=== PATIENT | female | born 1990 | race African-American/Black ===

== ENCOUNTER 2017-02-08 23:49 | Inpatient (IN) | payer MEDICAID ==
[~2017-02-08] VITALS: Ht 162.6 cm; Wt 59.0 kg
--- NOTE | 2017-02-08 23:52 | Emergency Room Report ---
History of Present Illness General Chief Complaint: Vomiting Source: Patient, Family Member Present Illness HPI The patient presents with vomiting. This began a few hours ago while riding in a car. She hasn't had any blood. This happened to her before. She does not know the cause. She denies any pain at this time. She can't keep down fluids. In the past she got better with Zofran. Denies any melena or diarrhea she is not according to her. She denies pancreatitis. She denies alcohol or other drugs. No fevers. Some dizziness and hand numbness with mild dyspnea with vomiting. Allergies: Coded Allergies: No Known Allergies (Unverified , 02/08/17) Patient History Past Medical History: see triage record Social History: Denies: alcohol use, drug use Social History Narrative from home Reviewed Nursing Documentation: PMH: Agreed, PSxH: Agreed Review of Systems All Other Systems: negative except mentioned in HPI Physical Exam Vital Signs Date Time Temp Pulse Resp B/P Pulse Ox O2 Delivery O2 Flow Rate FiO2 02/08/17 23:50 98.2 80 18 126/90 100 Room Air Sp02 EP Interpretation: reviewed, normal General Appearance: well appearing, GCS 15, mild distress - vomiting Head: normocephalic Eyes: bilateral eye PERRL, bilateral eye anticteric, bilateral eye normal inspection ENT: dry mucus membranes Neck: supple Respiratory: lungs clear, normal breath sounds Cardiovascular #1: regular rate, rhythm Cardiovascular #2: 2+ radial (R) Gastrointestinal: normal inspection, normal bowel sounds, non tender, no mass, non-distended, scaphoid Musculoskeletal: back normal, gait/station normal, normal range of motion Neurologic: alert, oriented x3, grossly normal Psychiatric: depressed affect Skin: warm/dry, other - sallo Medical Decision Making Diagnostic Impression: Primary Impression: Intractable vomiting Qualified Codes: R11.2 - Nausea with vomiting, unspecified ER Course Patient presents with severe vomiting. Ddx: gastritis, cyclic vomiting, pancreatitis, gall bladder disease, PUD, gastroparesis, psychogenic vomiting, , viral syndrome amongst others. Patient appears volume depleted, though not tachycardic. Emergent evaluation with labs, and urine. Treatment with IV hydration and zofran. Labs remarkable for leukocytosis. Patient vomited after zofran. Reglan and benadryl given. Still vomiting. Zofran repeated. Still vomiting. Admit med Dr. Boothe. Laboratory Tests Test 02/09/17 00:03 02/09/17 04:04 02/09/17 09:54 02/10/17 04:50 White Blood Count 15.2 K/UL (4.8-10.8) H 17.6 K/UL (4.8-10.8) H 11.1 K/UL (4.8-10.8) H Red Blood Count 4.39 M/UL (4.20-5.40) 4.45 M/UL (4.20-5.40) 4.24 M/UL (4.20-5.40) Hemoglobin 10.6 G/DL (12.0-16.0) L 10.4 G/DL (12.0-16.0) L 10.1 G/DL (12.0-16.0) L Hematocrit 32.7 % (37.0-47.0) L 33.6 % (37.0-47.0) L 31.9 % (37.0-47.0) L Mean Corpuscular Volume 74 FL (80-99) L 76 FL (80-99) L 75 FL (80-99) L Mean Corpuscular Hemoglobin 24.2 PG (27.0-31.0) L 23.4 PG (27.0-31.0) L 23.8 PG (27.0-31.0) L Mean Corpuscular Hemoglobin Concent 32.6 G/DL (32.0-36.0) 30.9 G/DL (32.0-36.0) L 31.7 G/DL (32.0-36.0) L Red Cell Distribution Width 17.4 % (11.6-14.8) H 17.4 % (11.6-14.8) H 17.1 % (11.6-14.8) H Platelet Count 331 K/UL (150-450) 299 K/UL (150-450) 293 K/UL (150-450) Mean Platelet Volume 5.8 FL (6.5-10.1) L 6.3 FL (6.5-10.1) L 6.0 FL (6.5-10.1) L Neutrophils (%) (Auto) 70.6 % (45.0-75.0) % (45.0-75.0) 76.9 % (45.0-75.0) H Lymphocytes (%) (Auto) 22.5 % (20.0-45.0) % (20.0-45.0) 11.8 % (20.0-45.0) L Monocytes (%) (Auto) 6.0 % (1.0-10.0) % (1.0-10.0) 10.8 % (1.0-10.0) H Eosinophils (%) (Auto) 0.2 % (0.0-3.0) % (0.0-3.0) 0.0 % (0.0-3.0) Basophils (%) (Auto) 0.7 % (0.0-2.0) % (0.0-2.0) 0.5 % (0.0-2.0) Sodium Level 138 mEQ/L (135-145) 134 mEQ/L (135-145) L 139 mEQ/L (135-145) Potassium Level 3.4 mEQ/L (3.4-4.9) 3.8 mEQ/L (3.4-4.9) 3.4 mEQ/L (3.4-4.9) Chloride Level 97 mEQ/L (98-107) L 94 mEQ/L (98-107) L 101 mEQ/L (98-107) Carbon Dioxide Level 21 mEQ/L (20-30) 21 mEQ/L (20-30) 24 mEQ/L (20-30) Anion Gap 20 (5-15) H 19 (5-15) H 14 (5-15) Blood Urea Nitrogen 11 mg/dL (7-23) 6 mg/dL (7-23) L 6 mg/dL (7-23) L Creatinine 0.7 mg/dL (0.5-0.9) 0.6 mg/dL (0.5-0.9) 0.6 mg/dL (0.5-0.9) Estimate Glomerular Filtration Rate > 60 mL/min (>60) > 60 mL/min (>60) > 60 mL/min (>60) Glucose Level 142 mg/dL (74-106) H 145 mg/dL (74-106) H 135 mg/dL (74-106) H Calcium Level 9.2 mg/dL (8.6-10.2) 9.0 mg/dL (8.6-10.2) 8.7 mg/dL (8.6-10.2) Total Bilirubin 0.4 mg/dL (0.0-1.2) 0.5 mg/dL (0.0-1.2) 0.4 mg/dL (0.0-1.2) Aspartate Amino Transferase (AST) 15 U/L (5-40) 19 U/L (5-40) 20 U/L (5-40) Alanine Aminotransferase (ALT) 10 U/L (3-33) 12 U/L (3-33) 17 U/L (3-33) Alkaline Phosphatase 49 U/L (35-104) 51 U/L (35-104) 44 U/L (35-104) Total Protein 7.5 g/dL (6.6-8.7) 7.9 g/dL (6.6-8.7) 6.7 g/dL (6.6-8.7) Albumin 4.5 g/dL (3.5-5.2) 4.6 g/dL (3.5-5.2) 4.1 g/dL (3.5-5.2) Globulin 3.0 g/dL 3.3 g/dL 2.6 g/dL Albumin/Globulin Ratio 1.5 (1.0-2.7) 1.3 (1.0-2.7) 1.5 (1.0-2.7) Lipase 19 U/L (< 60) 27 U/L (< 60) Urine Color Pale yellow Urine Appearance Clear Urine pH 6.5 (4.5-8.0) Urine Specific [place] 1.020 (1.005-1.035) Urine Protein Negative (NEGATIVE) Urine Glucose (UA) 1+ (NEGATIVE) H Urine Ketones 4+ (NEGATIVE) H Urine Occult Blood Negative (NEGATIVE) Urine Nitrite Negative (NEGATIVE) Urine Bilirubin Negative (NEGATIVE) Urine Urobilinogen Normal MG/DL (0.0-1.0) Urine Leukocyte Esterase Negative (NEGATIVE) Urine HCG, Qualitative Negative Differential Total Cells Counted 100 Neutrophils % (Manual) 91 % (45-75) H Lymphocytes % (Manual) 4 % (20-45) L Monocytes % (Manual) 5 % (1-10) Eosinophils % (Manual) 0 % (0-3) Basophils % (Manual) 0 % (0-2) Band Neutrophils 0 % (0-8) Platelet Estimate Adequate Platelet Morphology Normal Hypochromasia 1+ Anisocytosis 1+ Microcytosis 1+ Hemoglobin A1c 5.2 % (< 6.0) Triglycerides Level 28 mg/dL (< 150) Cholesterol Level 178 mg/dL (< 200) LDL Cholesterol 76 mg/dL (60-99) HDL Cholesterol 96 mg/dL (> 60) H Cholesterol/HDL Ratio 1.9 (3.3-4.4) L Amylase Level 52 U/L (10-110) Iron Level 23 ug/dL (37-145) L Total Iron Binding Capacity 289 ug/dL (250-400) Percent Iron Saturation 8 % (15-50) L Unsaturated Iron Binding 266 ug/dL (112-346) Last Vital Signs Date Time Temp Pulse Resp B/P Pulse Ox O2 Delivery O2 Flow Rate FiO2 02/10/17 08:56 98.2 70 20 109/74 100 Room Air Status: improved Disposition: ADMITTED INPATIENT Condition: Serious Blu Manning M.D. Feb 08, 2017 23:52
[2017-02-09] VITALS (8 sets, daily range): BP systolic 104–140; BP diastolic 72–96
[2017-02-09] MEDS ORDERED: Famotidine 20 MG/ 2ML VIAL IVP ONE
[2017-02-09 00:26] LABS: BASOPHILS % (AUTO) 0.7 % (0.0-2.0); EOSINOPHILS % (AUTO) 0.2 % (0.0-3.0); LYMPHOCYTES % (AUTO) 22.5 % (20.0-45.0); MEAN CORPUSCULAR HEMOGLOBIN 24.2 PG (27.0-31.0); MEAN CORPUSCULAR HGB CONC 32.6 G/DL (32.0-36.0); MEAN CORPUSCULAR VOLUME 74 FL (80-99); MEAN PLATELET VOLUME 5.8 FL (6.5-10.1); NEUTROPHILS % (AUTO) 70.6 % (45.0-75.0); PLATELET COUNT 331 K/UL (150-450); RED BLOOD COUNT 4.39 M/UL (4.20-5.40); RED CELL DISTRIBUTION WIDTH 17.4 % (11.6-14.8); WHITE BLOOD COUNT 15.2 K/UL (4.8-10.8)
[2017-02-09 00:47] LABS: ALANINE AMINOTRANSFERASE 10 U/L (3-33); ALBUMIN/GLOBULIN RATIO 1.5 (1.0-2.7); ANION GAP 20 (5-15); ASPARTATE AMINO TRANSFERASE 15 U/L (5-40); CALCIUM 9.2 mg/dL (8.6-10.2); CARBON DIOXIDE 21 mEQ/L (20-30); CHLORIDE 97 mEQ/L (98-107); CREATININE 0.7 mg/dL (0.5-0.9); GLOMERULAR FILTRATION RATE > 60 mL/min (>60); HEMOLYSIS 4; LIPASE 19 U/L (< 60); POTASSIUM 3.4 mEQ/L (3.4-4.9); SODIUM 138 mEQ/L (135-145); TOTAL PROTEIN 7.5 g/dL (6.6-8.7)
[2017-02-09] MEDS ORDERED: DiphenhydrAMINE 50mg/ml Inj ONE (01:14)
[2017-02-09] MEDS ORDERED: Metoclopramide 10mg/10ml Liq ONE (01:15)
[2017-02-09] MEDS ORDERED: DiphenhydrAMINE 50mg/ml Inj IVP ONE (01:30)
[2017-02-09] MEDS ORDERED: Metoclopramide 10mg/2ml Inj IVP ONE (01:30)
[2017-02-09 04:30] LABS: APPEARANCE,URINE CLEAR; KETONES,URINE 4+ (NEGATIVE); NITRITE,URINE NEGATIVE (NEGATIVE); PH,URINE 6.5 (4.5-8.0); PROTEIN,URINE NEGATIVE (NEGATIVE); UROBILINOGEN,URINE NORMAL MG/DL (0.0-1.0)
[2017-02-09 04:31] LABS: LEUKOCYTE ESTERASE ,URINE NEGATIVE (NEGATIVE)
[2017-02-09] MEDS ORDERED: NKM (05:50)
[2017-02-09] MEDS: D5NS 1,000 ML IV SCH ×3 (08:03→22:13)
[2017-02-09] MEDS: NS IV PRN ×2 (08:04→17:48)
[2017-02-09] MEDS: ONDANSETRON IV PRN ×2 (08:04→17:48)
[2017-02-09] MEDS: Pantoprazole Inj IVP SCH (08:15)
[2017-02-09 10:15] LABS: MEAN CORPUSCULAR HEMOGLOBIN 23.4 PG (27.0-31.0); MEAN CORPUSCULAR HGB CONC 30.9 G/DL (32.0-36.0); MEAN CORPUSCULAR VOLUME 76 FL (80-99); MEAN PLATELET VOLUME 6.3 FL (6.5-10.1); PLATELET COUNT 299 K/UL (150-450); RED BLOOD COUNT 4.45 M/UL (4.20-5.40); RED CELL DISTRIBUTION WIDTH 17.4 % (11.6-14.8); WHITE BLOOD COUNT 17.6 K/UL (4.8-10.8)
[2017-02-09 10:33] LABS: ANISOCYTOSIS 1+; BAND NEUTROPHILS % (MANUAL) 0 % (0-8); BASOPHILS % (MANUAL) 0 % (0-2); EOSINOPHILS % (MANUAL) 0 % (0-3); HYPOCHROMASIA 1+; LYMPHOCYTES % (MANUAL) 4 % (20-45); MICROCYTES 1+; NEUTROPHILS % (MANUAL) 91 % (45-75); PLATELET ESTIMATE ADEQUATE; PLATELET MORPHOLOGY NORMAL; TOTAL CELLS COUNTED 100
[2017-02-09 10:34] LABS: ALANINE AMINOTRANSFERASE 12 U/L (3-33); ALBUMIN/GLOBULIN RATIO 1.3 (1.0-2.7); AMYLASE 52 U/L (10-110); ANION GAP 19 (5-15); ASPARTATE AMINO TRANSFERASE 19 U/L (5-40); CARBON DIOXIDE 21 mEQ/L (20-30); CHLORIDE 94 mEQ/L (98-107); CHOLESTEROL 178 mg/dL (< 200); CHOLESTEROL/HDL RATIO 1.9 (3.3-4.4); CREATININE 0.6 mg/dL (0.5-0.9); GLOMERULAR FILTRATION RATE > 60 mL/min (>60); HEMOLYSIS 0; LDL CHOLESTEROL (CALC.) 76 mg/dL (60-99); LIPASE 27 U/L (< 60); POTASSIUM 3.8 mEQ/L (3.4-4.9); SODIUM 134 mEQ/L (135-145); TOTAL PROTEIN 7.9 g/dL (6.6-8.7)
[2017-02-09] MEDS ORDERED: Tubing IV Secondary IV ONE (10:43)
[2017-02-09] MEDS ORDERED: D5NS 1000ml IV ONE (10:43)
--- NOTE | 2017-02-09 10:55 | History & Physical ---
History and Physical History & Physicial seen and examined. Dict completed Christiana Boothe MD Feb 09, 2017 10:55
--- NOTE | 2017-02-09 10:57 | General Progress Note ---
Assessment/Plan Status: stable Assessment/Plan 1- Interactable vomitus 2- leukocytosis: no gross evidence of acute infection, will monitor 3- Anemia 4- GI-DVT prophylaxia Plan: NPO current supportive care GI-Dr Patiño notified Subjective ROS Limited/Unobtainable: No Constitutional: Reports: no symptoms Cardiovascular: Reports: no symptoms Respiratory: Reports: no symptoms Gastrointestinal/Abdominal: Reports: no symptoms Allergies: Coded Allergies: No Known Allergies (Unverified , 02/08/17) Objective Last 24 Hour Vital Signs Date Time Temp Pulse Resp B/P Pulse Ox O2 Delivery O2 Flow Rate FiO2 02/09/17 06:35 98.1 65 18 125/73 Room Air 02/09/17 06:20 98.2 62 15 110/72 100 Room Air 02/09/17 05:53 98.2 62 15 110/72 100 Room Air 02/09/17 04:46 98.2 62 15 124/83 100 Room Air 02/09/17 02:52 98.2 59 15 104/96 100 Room Air 02/09/17 00:17 98.2 62 15 104/79 100 Room Air 02/08/17 23:50 98.2 80 18 126/90 100 Room Air Intake and Output 02/08/17 02/09/17 19:00 07:00 Intake Total 2300 ml Balance 2300 ml Intake IV Total 2300 ml # Bowel Movements 1 Laboratory Tests 02/09/17 00:03: White Blood Count 15.2H, Red Blood Count 4.39, Hemoglobin 10.6L, Hematocrit 32.7L, Mean Corpuscular Volume 74L, Mean Corpuscular Hemoglobin 24.2L, Mean Corpuscular Hemoglobin Concent 32.6, Red Cell Distribution Width 17.4H, Platelet Count 331, Mean Platelet Volume 5.8L, Neutrophils (%) (Auto) 70.6, Lymphocytes (%) (Auto) 22.5, Monocytes (%) (Auto) 6.0, Eosinophils (%) (Auto) 0.2, Basophils (%) (Auto) 0.7, Sodium Level 138, Potassium Level 3.4, Chloride Level 97L, Carbon Dioxide Level 21, Anion Gap 20H, Blood Urea Nitrogen 11, Creatinine 0.7, Estimat Glomerular Filtration Rate > 60, Glucose Level 142H, Calcium Level 9.2, Total Bilirubin 0.4, Aspartate Amino Transf (AST/SGOT) 15, Alanine Aminotransferase (ALT/SGPT) 10, Alkaline Phosphatase 49, Total Protein 7.5, Albumin 4.5, Globulin 3.0, Albumin/Globulin Ratio 1.5, Lipase 19 02/09/17 04:04: Urine Color Pale yellow, Urine Appearance Clear, Urine pH 6.5, Urine Specific [place] 1.020, Urine Protein Negative, Urine Glucose (UA) 1+H, Urine Ketones 4+H , Urine Occult Blood Negative, Urine Nitrite Negative, Urine Bilirubin Negative , Urine Urobilinogen Normal, Urine Leukocyte Esterase Negative, Urine HCG, Qualitative Negative 02/09/17 09:54: White Blood Count 17.6H, Red Blood Count 4.45, Hemoglobin 10.4L, Hematocrit 33.6L, Mean Corpuscular Volume 76L, Mean Corpuscular Hemoglobin 23.4L, Mean Corpuscular Hemoglobin Concent 30.9L, Red Cell Distribution Width 17.4H, Platelet Count 299, Mean Platelet Volume 6.3L, Neutrophils (%) (Auto) , Lymphocytes (%) (Auto) , Monocytes (%) (Auto) , Eosinophils (%) (Auto) , Basophils (%) (Auto) , Sodium Level 134L, Potassium Level 3.8, Chloride Level 94L, Carbon Dioxide Level 21, Anion Gap 19H, Blood Urea Nitrogen 6L, Creatinine 0.6, Estimat Glomerular Filtration Rate > 60, Glucose Level 145H, Calcium Level 9.0, Total Bilirubin 0.5, Aspartate Amino Transf (AST/SGOT) 19, Alanine Aminotransferase (ALT/SGPT) 12, Alkaline Phosphatase 51, Total Protein 7.9, Albumin 4.6, Globulin 3.3, Albumin/Globulin Ratio 1.3, Lipase 27, Differential Total Cells Counted 100, Neutrophils % (Manual) 91H, Lymphocytes % (Manual) 4L, Monocytes % (Manual) 5, Eosinophils % (Manual) 0, Basophils % (Manual) 0, Band Neutrophils 0, Platelet Estimate Adequate, Platelet Morphology Normal, Hypochromasia 1+, Anisocytosis 1+, Microcytosis 1+, Hemoglobin A1c 5.2, Triglycerides Level 28, Cholesterol Level 178, LDL Cholesterol 76, HDL Cholesterol 96H, Cholesterol/HDL Ratio 1.9L, Amylase Level 52 Height (Feet): 5 Height (Inches): 4.00 Weight (Pounds): 130 General Appearance: no apparent distress EENT: PERRL/EOMI Neck: supple Cardiovascular: normal rate Respiratory/Chest: lungs clear Abdomen: soft Extremities: non-tender Neurologic: building pressure washer II-XII grossly normal Christiana Boothe MD Feb 09, 2017 10:57
--- NOTE | 2017-02-09 11:28 | General Progress Note ---
Assessment/Plan Assessment/Plan GI Consult dictated Thank you Escobar Bautista MD Subjective Allergies: Coded Allergies: No Known Allergies (Unverified , 02/08/17) Objective Last 24 Hour Vital Signs Date Time Temp Pulse Resp B/P Pulse Ox O2 Delivery O2 Flow Rate FiO2 02/09/17 06:35 98.1 65 18 125/73 Room Air 02/09/17 06:20 98.2 62 15 110/72 100 Room Air 02/09/17 05:53 98.2 62 15 110/72 100 Room Air 02/09/17 04:46 98.2 62 15 124/83 100 Room Air 02/09/17 02:52 98.2 59 15 104/96 100 Room Air 02/09/17 00:17 98.2 62 15 104/79 100 Room Air 02/08/17 23:50 98.2 80 18 126/90 100 Room Air Intake and Output 02/08/17 02/09/17 19:00 07:00 Intake Total 2300 ml Balance 2300 ml Intake IV Total 2300 ml # Bowel Movements 1 Laboratory Tests 02/09/17 00:03: White Blood Count 15.2H, Red Blood Count 4.39, Hemoglobin 10.6L, Hematocrit 32.7L, Mean Corpuscular Volume 74L, Mean Corpuscular Hemoglobin 24.2L, Mean Corpuscular Hemoglobin Concent 32.6, Red Cell Distribution Width 17.4H, Platelet Count 331, Mean Platelet Volume 5.8L, Neutrophils (%) (Auto) 70.6, Lymphocytes (%) (Auto) 22.5, Monocytes (%) (Auto) 6.0, Eosinophils (%) (Auto) 0.2, Basophils (%) (Auto) 0.7, Sodium Level 138, Potassium Level 3.4, Chloride Level 97L, Carbon Dioxide Level 21, Anion Gap 20H, Blood Urea Nitrogen 11, Creatinine 0.7, Estimat Glomerular Filtration Rate > 60, Glucose Level 142H, Calcium Level 9.2, Total Bilirubin 0.4, Aspartate Amino Transf (AST/SGOT) 15, Alanine Aminotransferase (ALT/SGPT) 10, Alkaline Phosphatase 49, Total Protein 7.5, Albumin 4.5, Globulin 3.0, Albumin/Globulin Ratio 1.5, Lipase 19 02/09/17 04:04: Urine Color Pale yellow, Urine Appearance Clear, Urine pH 6.5, Urine Specific [place] 1.020, Urine Protein Negative, Urine Glucose (UA) 1+H, Urine Ketones 4+H , Urine Occult Blood Negative, Urine Nitrite Negative, Urine Bilirubin Negative , Urine Urobilinogen Normal, Urine Leukocyte Esterase Negative, Urine HCG, Qualitative Negative 02/09/17 09:54: White Blood Count 17.6H, Red Blood Count 4.45, Hemoglobin 10.4L, Hematocrit 33.6L, Mean Corpuscular Volume 76L, Mean Corpuscular Hemoglobin 23.4L, Mean Corpuscular Hemoglobin Concent 30.9L, Red Cell Distribution Width 17.4H, Platelet Count 299, Mean Platelet Volume 6.3L, Neutrophils (%) (Auto) , Lymphocytes (%) (Auto) , Monocytes (%) (Auto) , Eosinophils (%) (Auto) , Basophils (%) (Auto) , Sodium Level 134L, Potassium Level 3.8, Chloride Level 94L, Carbon Dioxide Level 21, Anion Gap 19H, Blood Urea Nitrogen 6L, Creatinine 0.6, Estimat Glomerular Filtration Rate > 60, Glucose Level 145H, Calcium Level 9.0, Total Bilirubin 0.5, Aspartate Amino Transf (AST/SGOT) 19, Alanine Aminotransferase (ALT/SGPT) 12, Alkaline Phosphatase 51, Total Protein 7.9, Albumin 4.6, Globulin 3.3, Albumin/Globulin Ratio 1.3, Lipase 27, Differential Total Cells Counted 100, Neutrophils % (Manual) 91H, Lymphocytes % (Manual) 4L, Monocytes % (Manual) 5, Eosinophils % (Manual) 0, Basophils % (Manual) 0, Band Neutrophils 0, Platelet Estimate Adequate, Platelet Morphology Normal, Hypochromasia 1+, Anisocytosis 1+, Microcytosis 1+, Hemoglobin A1c 5.2, Triglycerides Level 28, Cholesterol Level 178, LDL Cholesterol 76, HDL Cholesterol 96H, Cholesterol/HDL Ratio 1.9L, Amylase Level 52 Height (Feet): 5 Height (Inches): 4.00 Weight (Pounds): 130 KIRANONIESCOBAR YAP Feb 09, 2017 11:28
[2017-02-09] MEDS: Ketorolac 30mg Inj IV PRN (13:20)
--- NOTE | 2017-02-09 21:58 | History and Physical Report ---
DATE OF ADMISSION: 02/09/2017 SOURCE OF INFORMATION: Patient and EMR. HISTORY OF PRESENT ILLNESS: The patient is a 26-year-old female with prior history of disease presented with the similar episodes. The patient reported that is not able to hold any anything including the water for the last couple of days. REVIEW OF SYSTEM: No chest pain. No shortness of breath. No abnormal bleeding. No diarrhea. No severe pain in the extremities. ALLERGIES: NKDA. COURSE OF ER ASSESSMENT: Vital signs are stable. Imaging not available at this time. CODE STATUS: Full code. FAMILY HISTORY: Reviewed and noncontributory. OUTPATIENT MEDICATIONS: Denies. PHYSICAL EXAMINATION: VITAL SIGNS: Blood pressure 120/90, temperature 98.2, pulse oximetry 100% on room air, respiratory rate 18. HEAD AND NECK: Atraumatic and normocephalic. CHEST: Clear to auscultation. HEART: S1 and S2. Regular rate and rhythm. ABDOMEN: Soft. No organomegaly. MUSCULOSKELETAL: No gross focal motor deficit. NEUROLOGY: The patient is awake, alert, and oriented x3. LABORATORY DATA: Dated 02/09/2017 shows WBC 15.2, hemoglobin 10.6, and platelets 331,000. BUN 11, creatinine, 0.7, sodium 138, and potassium 3.4. Urinalysis is unremarkable. Amylase and lipase are normal. ASSESSMENT: 1. Intractable vomitus. 2. Abnormal blood sugar. 3. Anemia. 4. Leukocytosis with no gross evidence of acute infection. 5. Gastrointestinal and deep vein thrombosis prophylaxis. PLAN OF CARE: Continue with supportive management including the intravenous fluids and Zofran. GI Dr Trammell has been consulted and notified. Christiana Boothe M.D. DR: QUANG JOB#: [id number] CC: MYRIAM
--- NOTE | 2017-02-09 23:28 | Consultation ---
DATE OF CONSULTATION: 02/09/2017 GASTROENTEROLOGY CONSULTATION CONSULTING PHYSICIAN: Giovana Bautista M.D. ATTENDING/REQUESTING PHYSICIAN: Christiana Boothe M.D. CHIEF COMPLAINT: I was asked to see this patient by Dr. Christiana Boothe for Dr. Trammell for evaluation of nausea and vomiting. HISTORY OF PRESENT ILLNESS: The patient is a 26-year-old woman, who gives self history of cyclic nausea and vomiting syndrome, who comes in with nausea, vomiting, diarrhea, and abdominal discomfort. The patient states that she has had cyclic nausea and vomiting syndrome for several years. She states the attacks happen a few times a year and can last up to a week. On this occasion, she has had nausea for about a week and vomiting for about a day. She has also had some pure diarrhea without any bleeding in it . The patient's last menstrual period was about two or three weeks ago and she is not sexually active. PAST MEDICAL HISTORY: History of polycystic ovarian disease. MEDICATIONS: None. ALLERGIES: None. FAMILY HISTORY: Negative. SOCIAL HISTORY: The patient is single. She does not smoke except for occasional marijuana. She drinks occasionally. REVIEW OF SYSTEMS: Otherwise negative. PHYSICAL EXAMINATION: GENERAL: A well-developed and well-nourished woman, seen in her room. HEENT: Normocephalic and atraumatic. Sclerae anicteric. Oropharynx is clear. NECK: Supple. CHEST: Clear to auscultation. CARDIOVASCULAR: Regular rhythm and rate. ABDOMEN: Soft and flat with good bowel sounds. There is some mild diffuse tenderness to palpation. No guarding or rebound. EXTREMITIES: No edema. NEUROLOGIC: Grossly nonfocal. LABORATORY DATA: Noted. ASSESSMENT: This patient gives a self-reported history of cyclic nausea and vomiting syndrome and this appears to be typical presentation; however, the patient also has some degree of leukocytosis, which may indicate infection and I will defer it to the primary physician. I will check stool Clostridium difficile since she has diarrhea; however, at this point, I will give her hydration. She also has some microcytic anemia and iron parameters should be checked. I will also check her stools for occult blood and consider endoscopy and colonoscopy if positive. RECOMMENDATIONS: Per above discussion and per orders written in the chart. Thank you for asking me to participate in the care of this patient. Giovana Bautista M.D. DR: ALEXANDER JOB#: [id number] CC:
[2017-02-10 00:11] VITALS: BP 132/68
[2017-02-10] MEDS: NS IV PRN ×3 (03:09→22:02)
[2017-02-10] MEDS: ONDANSETRON IV PRN ×3 (03:09→22:02)
[2017-02-10 04:15] VITALS: BP 141/80
[2017-02-10] MEDS: D5NS 1,000 ML IV SCH ×3 (06:14→22:45)
[2017-02-10 06:31] LABS: BASOPHILS % (AUTO) 0.5 % (0.0-2.0); LYMPHOCYTES % (AUTO) 11.8 % (20.0-45.0); MEAN CORPUSCULAR HEMOGLOBIN 23.8 PG (27.0-31.0); MEAN CORPUSCULAR HGB CONC 31.7 G/DL (32.0-36.0); MEAN CORPUSCULAR VOLUME 75 FL (80-99); MONOCYTES % (AUTO) 10.8 % (1.0-10.0); NEUTROPHILS % (AUTO) 76.9 % (45.0-75.0); PLATELET COUNT 293 K/UL (150-450); RED BLOOD COUNT 4.24 M/UL (4.20-5.40); RED CELL DISTRIBUTION WIDTH 17.1 % (11.6-14.8); WHITE BLOOD COUNT 11.1 K/UL (4.8-10.8)
[2017-02-10 07:16] LABS: ALANINE AMINOTRANSFERASE 17 U/L (3-33); ALBUMIN/GLOBULIN RATIO 1.5 (1.0-2.7); ANION GAP 14 (5-15); ASPARTATE AMINO TRANSFERASE 20 U/L (5-40); CALCIUM 8.7 mg/dL (8.6-10.2); CARBON DIOXIDE 24 mEQ/L (20-30); CHLORIDE 101 mEQ/L (98-107); CREATININE 0.6 mg/dL (0.5-0.9); GLOMERULAR FILTRATION RATE > 60 mL/min (>60); POTASSIUM 3.4 mEQ/L (3.4-4.9); SODIUM 139 mEQ/L (135-145); TOTAL PROTEIN 6.7 g/dL (6.6-8.7)
[2017-02-10 07:19] LABS: HEMOLYSIS 5; IRON 23 ug/dL (37-145); TOTAL IRON BINDING CAPACITY 289 ug/dL (250-400)
[2017-02-10 08:56] VITALS: BP 109/74
[2017-02-10] MEDS: Pantoprazole Inj IVP SCH (09:24)
--- NOTE | 2017-02-10 10:46 | Diagnostic Imaging Report ---
Indication: Pain, nausea, vomiting Technique: Stern-scale and duplex images of the upper abdomen were obtained Comparison: None Findings: Questionable trace ascites is seen adjacent to the spleen. Gallbladder is unremarkable, without stones, wall thickening, nor pericholecystic fluid. Sonographic Oates's sign is negative. Common bile duct measures 4 mm in diameter. No intrahepatic biliary ductal dilatation. Liver demonstrates normal echogenicity, no focal abnormality. Portal vein and hepatic veins are patent.. Pancreas is unremarkable. Spleen is unremarkable. Left kidney measures 11.9 cm in length. Right kidney measures 11.7 cm length. Both kidneys demonstrate normal echogenicity. There is no hydronephrosis. Both kidneys demonstrate echogenic foci in the renal sinuses. No focal parenchymal abnormality. . Non-aneurysmal abdominal aorta. Impression: Equivocal trace ascites Negative for gallstones or dilated ducts Echogenic foci in the renal sinuses bilaterally, nonobstructive calyceal calculi not excludable
--- NOTE | 2017-02-10 11:57 | General Progress Note ---
Assessment/Plan Status: stable Assessment/Plan 1. Intractable vomitus. 2. Abnormal blood sugar. 3. Anemia. 4. Leukocytosis with no gross evidence of acute infection. 5. Gastrointestinal and deep vein thrombosis prophylaxis. Plan: NPO, will advance as tolerated current supportive care Once GI clears, may follow as outpatient Subjective ROS Limited/Unobtainable: No HEENT: Reports: no symptoms Respiratory: Reports: no symptoms Gastrointestinal/Abdominal: Reports: no symptoms Allergies: Coded Allergies: No Known Allergies (Unverified , 02/08/17) Objective Last 24 Hour Vital Signs Date Time Temp Pulse Resp B/P Pulse Ox O2 Delivery O2 Flow Rate FiO2 02/10/17 08:56 98.2 70 20 109/74 100 Room Air 02/10/17 04:15 98.4 75 19 141/80 97 Room Air 02/10/17 00:11 98.6 80 18 132/68 98 Room Air 02/09/17 20:10 98.8 74 19 128/75 100 Room Air 02/09/17 16:00 98.4 129/74 100 Room Air 02/09/17 13:50 98.2 02/09/17 12:00 98.2 18 140/77 100 Room Air Intake and Output 02/09/17 02/10/17 19:00 07:00 Intake Total 960 ml 960 ml Balance 960 ml 960 ml Intake IV Total 960 ml 960 ml # Bowel Movements 1 Laboratory Tests 02/10/17 04:50: White Blood Count 11.1H, Red Blood Count 4.24, Hemoglobin 10.1L, Hematocrit 31.9L, Mean Corpuscular Volume 75L, Mean Corpuscular Hemoglobin 23.8L, Mean Corpuscular Hemoglobin Concent 31.7L, Red Cell Distribution Width 17.1H, Platelet Count 293, Mean Platelet Volume 6.0L, Neutrophils (%) (Auto) 76.9H, Lymphocytes (%) (Auto) 11.8L, Monocytes (%) (Auto) 10.8H, Eosinophils (%) (Auto ) 0.0, Basophils (%) (Auto) 0.5, Sodium Level 139, Potassium Level 3.4, Chloride Level 101, Carbon Dioxide Level 24, Anion Gap 14, Blood Urea Nitrogen 6L, Creatinine 0.6, Estimat Glomerular Filtration Rate > 60, Glucose Level 135H , Calcium Level 8.7, Iron Level 23L, Total Iron Binding Capacity 289, Percent Iron Saturation 8L, Unsaturated Iron Binding 266, Total Bilirubin 0.4, Aspartate Amino Transf (AST/SGOT) 20, Alanine Aminotransferase (ALT/SGPT) 17, Alkaline Phosphatase 44, Total Protein 6.7, Albumin 4.1, Globulin 2.6, Albumin/ Globulin Ratio 1.5 Height (Feet): 5 Height (Inches): 4.00 Weight (Pounds): 130 General Appearance: no apparent distress EENT: PERRL/EOMI Neck: supple Cardiovascular: normal rate Respiratory/Chest: lungs clear Abdomen: soft Extremities: non-tender Neurologic: bean snipper II-XII grossly normal Christiana Boothe MD Feb 10, 2017 11:57
[2017-02-10 12:50] VITALS: BP 106/48
[2017-02-10 16:30] VITALS: BP 107/59
--- NOTE | 2017-02-10 16:53 | GI Progress Note ---
Assessment/Plan Problems: (1) Hematemesis/vomiting blood ICD Codes: K92.0 - Hematemesis SNOMED: 8549674 (2) Anemia ICD Codes: D64.9 - Anemia, unspecified SNOMED: 220255156 (3) Diarrhea ICD Codes: R19.7 - Diarrhea, unspecified SNOMED: 31649839 (4) Intractable vomiting ICD Codes: R11.10 - Vomiting, unspecified SNOMED: 871624749, 188240614 Qualifiers: Qualified Codes: R11.2 - Nausea with vomiting, unspecified Status: unchanged Status Narrative Discussed with Dr. Trammell. Assessment/Plan lipase negative OB stool uncollected cdiff uncollected EGD scheduled for tomorrow to evaluate hematemesis. - NPO @ [facility]. - hold all blood thinners monitor H&H, transfuse prn ordered utox ppi fu labs Subjective Subjective bright blood in emesis Objective Last 24 Hour Vital Signs Date Time Temp Pulse Resp B/P Pulse Ox O2 Delivery O2 Flow Rate FiO2 02/10/17 12:50 98.8 64 19 106/48 99 Room Air 02/10/17 08:56 98.2 70 20 109/74 100 Room Air 02/10/17 04:15 98.4 75 19 141/80 97 Room Air 02/10/17 00:11 98.6 80 18 132/68 98 Room Air 02/09/17 20:10 98.8 74 19 128/75 100 Room Air Intake and Output 02/09/17 02/10/17 19:00 07:00 Intake Total 960 ml 960 ml Balance 960 ml 960 ml Intake IV Total 960 ml 960 ml # Bowel Movements 1 Laboratory Tests Test 02/10/17 04:50 White Blood Count 11.1 K/UL (4.8-10.8) H Red Blood Count 4.24 M/UL (4.20-5.40) Hemoglobin 10.1 G/DL (12.0-16.0) L Hematocrit 31.9 % (37.0-47.0) L Mean Corpuscular Volume 75 FL (80-99) L Mean Corpuscular Hemoglobin 23.8 PG (27.0-31.0) L Mean Corpuscular Hemoglobin Concent 31.7 G/DL (32.0-36.0) L Red Cell Distribution Width 17.1 % (11.6-14.8) H Platelet Count 293 K/UL (150-450) Mean Platelet Volume 6.0 FL (6.5-10.1) L Neutrophils (%) (Auto) 76.9 % (45.0-75.0) H Lymphocytes (%) (Auto) 11.8 % (20.0-45.0) L Monocytes (%) (Auto) 10.8 % (1.0-10.0) H Eosinophils (%) (Auto) 0.0 % (0.0-3.0) Basophils (%) (Auto) 0.5 % (0.0-2.0) Sodium Level 139 mEQ/L (135-145) Potassium Level 3.4 mEQ/L (3.4-4.9) Chloride Level 101 mEQ/L (98-107) Carbon Dioxide Level 24 mEQ/L (20-30) Anion Gap 14 (5-15) Blood Urea Nitrogen 6 mg/dL (7-23) L Creatinine 0.6 mg/dL (0.5-0.9) Estimat Glomerular Filtration Rate > 60 mL/min (>60) Glucose Level 135 mg/dL (74-106) H Calcium Level 8.7 mg/dL (8.6-10.2) Iron Level 23 ug/dL (37-145) L Total Iron Binding Capacity 289 ug/dL (250-400) Percent Iron Saturation 8 % (15-50) L Unsaturated Iron Binding 266 ug/dL (112-346) Total Bilirubin 0.4 mg/dL (0.0-1.2) Aspartate Amino Transf (AST/SGOT) 20 U/L (5-40) Alanine Aminotransferase (ALT/SGPT) 17 U/L (3-33) Alkaline Phosphatase 44 U/L (35-104) Total Protein 6.7 g/dL (6.6-8.7) Albumin 4.1 g/dL (3.5-5.2) Globulin 2.6 g/dL Albumin/Globulin Ratio 1.5 (1.0-2.7) Height (Feet): 5 Height (Inches): 4.00 Weight (Pounds): 130 General Appearance: no apparent distress, alert Cardiovascular: normal rate Respiratory/Chest: normal breath sounds, no respiratory distress Abdominal Exam: normal bowel sounds, non tender, soft Extremities: normal range of motion Cari Cardenas N.P. Feb 10, 2017 16:53
[2017-02-10 20:00] VITALS: BP 137/89
[2017-02-11] VITALS (8 sets, daily range): BP systolic 97–141; BP diastolic 57–82
[2017-02-11] MEDS: ONDANSETRON IV PRN ×3 (02:10→21:35)
[2017-02-11] MEDS: NS IV PRN ×3 (02:10→21:35)
[2017-02-11] MEDS: Ketorolac 30mg Inj IV PRN ×3 (05:29→22:05)
[2017-02-11 06:59] LABS: BASOPHILS % (AUTO) 0.6 % (0.0-2.0); EOSINOPHILS % (AUTO) 0.3 % (0.0-3.0); LYMPHOCYTES % (AUTO) 36.7 % (20.0-45.0); MEAN CORPUSCULAR HEMOGLOBIN 23.3 PG (27.0-31.0); MEAN CORPUSCULAR HGB CONC 31.1 G/DL (32.0-36.0); MEAN CORPUSCULAR VOLUME 75 FL (80-99); MEAN PLATELET VOLUME 6.6 FL (6.5-10.1); MONOCYTES % (AUTO) 10.8 % (1.0-10.0); NEUTROPHILS % (AUTO) 51.6 % (45.0-75.0); PLATELET COUNT 257 K/UL (150-450); RED BLOOD COUNT 4.22 M/UL (4.20-5.40); RED CELL DISTRIBUTION WIDTH 16.9 % (11.6-14.8); WHITE BLOOD COUNT 9.5 K/UL (4.8-10.8)
[2017-02-11 07:06] LABS: INR 1.1 (0.9-1.1); PROTHROMBIN TIME 11.4 SEC (9.30-11.50)
[2017-02-11 07:10] LABS: ANION GAP 15 (5-15); CALCIUM 8.6 mg/dL (8.6-10.2); CARBON DIOXIDE 23 mEQ/L (20-30); CHLORIDE 99 mEQ/L (98-107); CREATININE 0.6 mg/dL (0.5-0.9); GLOMERULAR FILTRATION RATE > 60 mL/min (>60); HEMOLYSIS 1; SODIUM 137 mEQ/L (135-145)
[2017-02-11] MEDS: Pantoprazole Inj IVP SCH (08:17)
[2017-02-11] MEDS: D5NS 1,000 ML IV SCH ×2 (08:17→16:52)
--- NOTE | 2017-02-11 09:49 | General Progress Note ---
Assessment/Plan Status: stable Assessment/Plan 1. Intractable vomitus, with reported streak of blood 2. Abnormal blood sugar. 3. Anemia. 4. Leukocytosis with no gross evidence of acute infection. 5. Gastrointestinal and deep vein thrombosis prophylaxis. Plan: NPO, will advance as tolerated current supportive care scheduled EGD Once GI clears, may follow as outpatient Subjective ROS Limited/Unobtainable: No Constitutional: Reports: no symptoms HEENT: Reports: no symptoms Gastrointestinal/Abdominal: Reports: nausea, vomiting Allergies: Coded Allergies: No Known Allergies (Unverified , 02/08/17) Objective Last 24 Hour Vital Signs Date Time Temp Pulse Resp B/P Pulse Ox O2 Delivery O2 Flow Rate FiO2 02/11/17 08:42 98.6 58 20 130/78 100 Room Air 02/11/17 04:00 98.3 59 21 97/57 Room Air 02/10/17 20:00 97.9 65 18 137/89 98 Room Air 02/10/17 16:30 98.0 70 19 107/59 99 Room Air 02/10/17 12:50 98.8 64 19 106/48 99 Room Air Intake and Output 02/10/17 02/11/17 19:00 07:00 Intake Total 360 ml 928 ml Balance 360 ml 928 ml Intake Oral 360 ml IV Total 928 ml Laboratory Tests 02/10/17 19:00: Urine Opiates Screen Negative, Urine Barbiturates Screen Negative, Phencyclidine (PCP) Screen Negative, Urine Amphetamines Screen Negative, Urine Benzodiazepines Screen Negative, Urine Cocaine Screen Negative, Urine Marijuana (THC) Screen PositiveH 02/11/17 05:45: White Blood Count 9.5, Red Blood Count 4.22, Hemoglobin 9.8L, Hematocrit 31.6L, Mean Corpuscular Volume 75L, Mean Corpuscular Hemoglobin 23.3L, Mean Corpuscular Hemoglobin Concent 31.1L, Red Cell Distribution Width 16.9H, Platelet Count 257, Mean Platelet Volume 6.6, Neutrophils (%) (Auto) 51.6, Lymphocytes (%) (Auto) 36.7, Monocytes (%) (Auto) 10.8H, Eosinophils (%) (Auto) 0.3, Basophils (%) (Auto) 0.6, Prothrombin Time 11.4, Prothromb Time International Ratio 1.1, Activated Partial Thromboplast Time 30, Sodium Level 137, Potassium Level 3.0L, Chloride Level 99, Carbon Dioxide Level 23, Anion Gap 15, Blood Urea Nitrogen 7, Creatinine 0.6, Estimat Glomerular Filtration Rate > 60, Glucose Level 112H, Calcium Level 8.6 Height (Feet): 5 Height (Inches): 4.00 Weight (Pounds): 130 General Appearance: no apparent distress EENT: PERRL/EOMI Neck: supple Cardiovascular: normal rate Respiratory/Chest: lungs clear Abdomen: soft Extremities: non-tender Neurologic: poultry slaughterer II-XII grossly normal, oriented x 3 Christiana Boothe MD Feb 11, 2017 09:49
[2017-02-11] MEDS ORDERED: LR 1000ml ONE (11:00)
[2017-02-11] MEDS ORDERED: Propofol 10mg/ml 20ml IV ONE (11:00)
[2017-02-11] MEDS ORDERED: NS 550ML IV ONE (11:30)
--- NOTE | 2017-02-11 11:31 | Pre-Procedure Note/Attestation ---
Pre-Procedure Note/Attestation Complete Prior to Procedure Planned Procedure: not applicable Procedure Narrative: egd Indications for Procedure Pre-Operative Diagnosis: hematoemesis Attestation I attest that I discussed the nature of the procedure; its benefits; risks and complications; and alternatives (and the risks and benefits of such alternatives ), prior to the procedure, with the patient (or the patient's legal it sales representative). I attest that, if there was a reasonable possibility of needing a blood transfusion, the patient (or the patient's legal it sales representative) was given the [facility] standardized written summary, pursuant to the [place] Blood Safety Act ([place] Health and Safety Code # 1645, as amended). I attest that I re-evaluated the patient just prior to the surgery and that there has been no change in the patient's H&P, except as documented below: SAAD BUTTS Feb 11, 2017 11:31
--- NOTE | 2017-02-11 11:39 | Endoscopy Procedure Note ---
Endoscopy Procedure Note Indication for Procedure: vomiting Procedures Performed: EGD Operative Findings/Diagnosis: gastritis Specimen: yes Pt Tolerated Procedure Well: Yes Estimated Blood Loss: none Anesthesiologist: magali Anesthesia: MAC Implant(s) used?: No 50 yrs or older w/o bx or poly: Not Applicable 10yrs. F/U not recommended: Not Applicable SAAD BUTTS Feb 11, 2017 11:39
--- NOTE | 2017-02-11 11:55 | Immediate Post-Op Evaluation ---
Immediate Post-Op Evalulation Immediate Post-Op Evalulation Procedure: egd Date of Evaluation: Feb 11, 2017 Time of Evaluation: 12:00 Duy Wright MD Feb 11, 2017 11:55
--- NOTE | 2017-02-11 11:55 | Anethesia Preoperative Eval ---
Anesthesia Pre-op PMH/ROS General Date of Evaluation: Feb 11, 2017 Time of Evaluation: 11:00 ASA Score: ASA 1 Mallampati Score Class I : Soft palate, uvula, fauces, pillars visible Class II: Soft palate, uvula, fauces visible Class III: Soft palate, base of uvula visible Class IV: Only hard plate visible Mallampati Classification: Class I Allergies: Coded Allergies: No Known Allergies (Unverified , 02/08/17) Anesthesia Pre-op Phys. Exam Physician Exam Last Vital Signs Date Time Temp Pulse Resp B/P Pulse Ox O2 Delivery O2 Flow Rate FiO2 02/11/17 10:01 98.6 02/11/17 08:42 58 20 130/78 100 Room Air Anesthesia Pre-op A/P Labs Hematology Test 02/11/17 05:45 White Blood Count 9.5 K/UL (4.8-10.8) Red Blood Count 4.22 M/UL (4.20-5.40) Hemoglobin 9.8 G/DL (12.0-16.0) L Hematocrit 31.6 % (37.0-47.0) L Mean Corpuscular Volume 75 FL (80-99) L Mean Corpuscular Hemoglobin 23.3 PG (27.0-31.0) L Mean Corpuscular Hemoglobin Concent 31.1 G/DL (32.0-36.0) L Red Cell Distribution Width 16.9 % (11.6-14.8) H Platelet Count 257 K/UL (150-450) Mean Platelet Volume 6.6 FL (6.5-10.1) Neutrophils (%) (Auto) 51.6 % (45.0-75.0) Lymphocytes (%) (Auto) 36.7 % (20.0-45.0) Monocytes (%) (Auto) 10.8 % (1.0-10.0) H Eosinophils (%) (Auto) 0.3 % (0.0-3.0) Basophils (%) (Auto) 0.6 % (0.0-2.0) Coagulation Test 02/11/17 05:45 Prothrombin Time 11.4 SEC (9.30-11.50) Prothromb Time International Ratio 1.1 (0.9-1.1) Activated Partial Thromboplast Time 30 SEC (23-33) Chemistry Test 02/11/17 05:45 Sodium Level 137 mEQ/L (135-145) Potassium Level 3.0 mEQ/L (3.4-4.9) L Chloride Level 99 mEQ/L (98-107) Carbon Dioxide Level 23 mEQ/L (20-30) Anion Gap 15 (5-15) Blood Urea Nitrogen 7 mg/dL (7-23) Creatinine 0.6 mg/dL (0.5-0.9) Estimat Glomerular Filtration Rate > 60 mL/min (>60) Glucose Level 112 mg/dL (74-106) H Calcium Level 8.6 mg/dL (8.6-10.2) Duy Wright MD Feb 11, 2017 11:55
--- NOTE | 2017-02-11 20:58 | Procedure Note ---
DATE OF PROCEDURE: 02/11/2017 SURGEON: German Trammell M.D. PROCEDURE: Upper endoscopy with biopsy. ANESTHESIOLOGIST: . INSTRUMENT: Olympus adult flexible upper endoscope. INDICATION: Nausea, vomiting, and hematemesis. REASON FOR PROCEDURE: The procedure, risks, benefits, and possible consequences, including hemorrhage, aspiration, perforation and infection, and alternative treatments, were explained to the patient/legal guardian by Dr. German Trammell and the patient/legal guardian understood and accepted these risks. DESCRIPTION OF PROCEDURE: After informed consent was obtained and the patient was adequately sedated, Olympus upper endoscope was advanced from mouth into the second portion of duodenum and retroflexion was performed in the stomach. The patient has evidence of gastritis. Random biopsy from antrum was obtained to rule out H. pylori infection. The patient also has two large inlet patches in the upper esophagus, beginning up the esophagus. At this time, the scope was retrieved and procedure was terminated. SUMMARY OF FINDINGS: 1. Two large inlet patches. 2. Gastritis status post biopsy. RECOMMENDATIONS: 1. Resume diet. 2. The patient to avoid marijuana. 3. Continue on PPI. 4. Advance diet. 5. Treat for nausea. German Trammell M.D. DR: TRUPTI JOB#: [id number] CC:
[2017-02-12] VITALS: BP 101/67
[2017-02-12] MEDS: D5NS 1,000 ML IV SCH ×2 (00:38→08:50)
[2017-02-12 04:00] VITALS: BP 117/88
[2017-02-12] MEDS: ONDANSETRON IV PRN (05:52)
[2017-02-12] MEDS: NS IV PRN (05:52)
[2017-02-12 07:02] LABS: BASOPHILS % (AUTO) 0.4 % (0.0-2.0); EOSINOPHILS % (AUTO) 0.4 % (0.0-3.0); LYMPHOCYTES % (AUTO) 24.5 % (20.0-45.0); MEAN CORPUSCULAR HEMOGLOBIN 23.7 PG (27.0-31.0); MEAN CORPUSCULAR HGB CONC 31.6 G/DL (32.0-36.0); MEAN CORPUSCULAR VOLUME 75 FL (80-99); MEAN PLATELET VOLUME 6.6 FL (6.5-10.1); NEUTROPHILS % (AUTO) 63.7 % (45.0-75.0); PLATELET COUNT 251 K/UL (150-450); RED BLOOD COUNT 4.41 M/UL (4.20-5.40); RED CELL DISTRIBUTION WIDTH 17.5 % (11.6-14.8); WHITE BLOOD COUNT 9.4 K/UL (4.8-10.8)
[2017-02-12 07:36] LABS: ANION GAP 16 (5-15); CALCIUM 8.9 mg/dL (8.6-10.2); CARBON DIOXIDE 23 mEQ/L (20-30); CHLORIDE 97 mEQ/L (98-107); CREATININE 0.6 mg/dL (0.5-0.9); GLOMERULAR FILTRATION RATE > 60 mL/min (>60); HEMOLYSIS 1; SODIUM 136 mEQ/L (135-145)
[2017-02-12] MEDS: Pantoprazole Inj IVP SCH (07:57)
[2017-02-12 08:00] VITALS: BP 130/80
[2017-02-12] MEDS: Ketorolac 30mg Inj IV PRN (09:00)
--- NOTE | 2017-02-12 09:06 | GI Progress Note ---
Assessment/Plan Problems: (1) Hematemesis/vomiting blood ICD Codes: K92.0 - Hematemesis SNOMED: 3970133 (2) Anemia ICD Codes: D64.9 - Anemia, unspecified SNOMED: 422755044 (3) Diarrhea ICD Codes: R19.7 - Diarrhea, unspecified SNOMED: 85795536 (4) Intractable vomiting ICD Codes: R11.10 - Vomiting, unspecified SNOMED: 547631426, 707336613 Qualifiers: Qualified Codes: R11.2 - Nausea with vomiting, unspecified Status: stable Status Narrative Discussed with Dr. Trammell. Assessment/Plan SUMMARY OF FINDINGS: 1. Two large inlet patches. 2. Gastritis status post biopsy. RECOMMENDATIONS: ok for DC per GI standpoint 1. cont diet. 2. The patient to avoid marijuana. 3. Continue on PPI inpatient. 4. Advance diet. 5. Treat for nausea. 6. fu biopsy results 7. fu with PCP Subjective Subjective N/V - resolved Objective Last 24 Hour Vital Signs Date Time Temp Pulse Resp B/P Pulse Ox O2 Delivery O2 Flow Rate FiO2 02/12/17 08:00 98.2 60 16 130/80 99 Room Air 02/12/17 04:00 97.1 56 21 117/88 100 Room Air 02/12/17 00:00 98.1 69 21 101/67 98 Room Air 02/11/17 22:35 98.2 02/11/17 20:00 98.2 67 20 126/61 99 Room Air 02/11/17 16:15 98.0 63 19 141/78 100 Room Air 02/11/17 12:13 59 16 137/80 100 Room Air 02/11/17 12:00 55 16 127/82 100 Nasal Cannula 3.0 02/11/17 11:55 54 18 136/79 100 Nasal Cannula 3.0 02/11/17 11:50 98.4 55 13 116/82 100 Nasal Cannula 3.0 Intake and Output 02/11/17 02/12/17 19:00 07:00 Intake Total 1940 ml 1418 ml Balance 1940 ml 1418 ml Intake Oral 100 ml IV Total 1940 ml 1318 ml # Voids 2 Laboratory Tests Test 02/12/17 05:00 White Blood Count 9.4 K/UL (4.8-10.8) Red Blood Count 4.41 M/UL (4.20-5.40) Hemoglobin 10.5 G/DL (12.0-16.0) L Hematocrit 33.1 % (37.0-47.0) L Mean Corpuscular Volume 75 FL (80-99) L Mean Corpuscular Hemoglobin 23.7 PG (27.0-31.0) L Mean Corpuscular Hemoglobin Concent 31.6 G/DL (32.0-36.0) L Red Cell Distribution Width 17.5 % (11.6-14.8) H Platelet Count 251 K/UL (150-450) Mean Platelet Volume 6.6 FL (6.5-10.1) Neutrophils (%) (Auto) 63.7 % (45.0-75.0) Lymphocytes (%) (Auto) 24.5 % (20.0-45.0) Monocytes (%) (Auto) 11.0 % (1.0-10.0) H Eosinophils (%) (Auto) 0.4 % (0.0-3.0) Basophils (%) (Auto) 0.4 % (0.0-2.0) Sodium Level 136 mEQ/L (135-145) Potassium Level 3.0 mEQ/L (3.4-4.9) L Chloride Level 97 mEQ/L (98-107) L Carbon Dioxide Level 23 mEQ/L (20-30) Anion Gap 16 (5-15) H Blood Urea Nitrogen 3 mg/dL (7-23) L Creatinine 0.6 mg/dL (0.5-0.9) Estimat Glomerular Filtration Rate > 60 mL/min (>60) Glucose Level 120 mg/dL (74-106) H Calcium Level 8.9 mg/dL (8.6-10.2) Height (Feet): 5 Height (Inches): 4.00 Weight (Pounds): 130 General Appearance: no apparent distress, alert Cardiovascular: normal rate Abdominal Exam: normal bowel sounds, non tender, soft Extremities: normal range of motion Cari Cardenas N.Elias Feb 12, 2017 09:05
[2017-02-12] MEDS ORDERED: Tubing IV Secondary IV ONE (09:42)
[2017-02-12] MEDS ORDERED: D5NS 1000ml IV ONE (09:42)
--- NOTE | 2017-02-12 10:02 | General Progress Note ---
Assessment/Plan Status: stable Assessment/Plan 1. Intractable vomitus, with reported streak of blood 2. Abnormal blood sugar. 3. Anemia. 4. Leukocytosis with no gross evidence of acute infection. 5. Gastrointestinal and deep vein thrombosis prophylaxis. Plan: NPO, will advance as tolerated current supportive care S/p EGD Once GI clears, may follow as outpatient Subjective ROS Limited/Unobtainable: No Constitutional: Reports: no symptoms HEENT: Reports: no symptoms Respiratory: Reports: no symptoms Allergies: Coded Allergies: No Known Allergies (Unverified , 02/08/17) Objective Last 24 Hour Vital Signs Date Time Temp Pulse Resp B/P Pulse Ox O2 Delivery O2 Flow Rate FiO2 02/12/17 09:30 98.2 02/12/17 08:00 98.2 60 16 130/80 99 Room Air 02/12/17 04:00 97.1 56 21 117/88 100 Room Air 02/12/17 00:00 98.1 69 21 101/67 98 Room Air 02/11/17 20:00 98.2 67 20 126/61 99 Room Air 02/11/17 16:15 98.0 63 19 141/78 100 Room Air 02/11/17 12:13 59 16 137/80 100 Room Air 02/11/17 12:00 55 16 127/82 100 Nasal Cannula 3.0 02/11/17 11:55 54 18 136/79 100 Nasal Cannula 3.0 02/11/17 11:50 98.4 55 13 116/82 100 Nasal Cannula 3.0 Intake and Output 02/11/17 02/12/17 19:00 07:00 Intake Total 1940 ml 1418 ml Balance 1940 ml 1418 ml Intake Oral 100 ml IV Total 1940 ml 1318 ml # Voids 2 Laboratory Tests 02/12/17 05:00: White Blood Count 9.4, Red Blood Count 4.41, Hemoglobin 10.5L, Hematocrit 33.1L , Mean Corpuscular Volume 75L, Mean Corpuscular Hemoglobin 23.7L, Mean Corpuscular Hemoglobin Concent 31.6L, Red Cell Distribution Width 17.5H, Platelet Count 251, Mean Platelet Volume 6.6, Neutrophils (%) (Auto) 63.7, Lymphocytes (%) (Auto) 24.5, Monocytes (%) (Auto) 11.0H, Eosinophils (%) (Auto) 0.4, Basophils (%) (Auto) 0.4, Sodium Level 136, Potassium Level 3.0L, Chloride Level 97L, Carbon Dioxide Level 23, Anion Gap 16H, Blood Urea Nitrogen 3L, Creatinine 0.6, Estimat Glomerular Filtration Rate > 60, Glucose Level 120H, Calcium Level 8.9 Height (Feet): 5 Height (Inches): 4.00 Weight (Pounds): 130 General Appearance: no apparent distress EENT: PERRL/EOMI Neck: supple Cardiovascular: normal rate Respiratory/Chest: lungs clear Abdomen: soft Extremities: non-tender 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
--- NOTE | 2017-02-13 13:32 | Discharge Summary ---
Discharge Summary Hospital Course Date of Admission Feb 09, 2017 at 04:40 Date of Discharge Feb 12, 2017 at 09:43 Admitting Diagnosis intractable vomiting EMILY Gaytan is a 26 year old female who was admitted on Feb 09, 2017 at 04: 40 for Intractable Vomiting Hospital Course [id number] Discharge Discharge Disposition Patient was discharged to Home (01) Discharge Diagnoses: Kinsey Pineda NP Feb 13, 2017 13:32
--- NOTE | 2017-02-13 22:18 | Discharge Summary 2 SIG ---
DATE OF ADMISSION: 02/09/2017 DATE OF DISCHARGE: 02/12/2017 CONSULTANTS: German Trammell M.D. BRIEF HOSPITAL COURSE: The patient is a 26-year-old female, who presented to ED complaining of vomiting and had prior similar symptoms in the past and unable to keep fluids down. At ED, laboratory was remarkable for leukocytosis, WBC elevated to 15, and the patient vomited after given Zofran. She was also given Reglan and Benadryl. Because of repeated symptoms, the patient was admitted for further workup and was given IV hydration and was initially placed on NPO with p.r.n. Zofran. She was given proton pump inhibitors. Dr. Trammell was consulted. The patient underwent upper GI endoscopy on 02/11/2017 with findings of two large inlet patches in the upper esophagus and gastritis. Urine toxicology at was positive for marijuana. Diet was advanced as tolerated and was advised to avoid marijuana. Electrolytes were repleted and she was eventually discharged home. Advised to follow up with GI as outpatient. FINAL DIAGNOSES: 1. Intractable vomiting with hematemesis status post esophagogastroduodenoscopy with findings of gastritis and two large inlet patches in the esophagus. 2. Anemia. 3. Hypokalemia. Christiana Boothe M.D. I have been assigned to dictate discharge summary on this account and I was not involved in the patient's management. Kinsey Pineda N.P. DR: KEENA JOB#: [id number] CC: MYRIAM
== END 2017-02-12 09:43 | disposition home or self-care (01) | DRG 241 ==
LOC: EDBD 23:49 → EMR 02-09 01:56 → 4W 02-09 04:40 → EDBEDREQ 02-09 04:45
PROC: 0DB68ZX Excision of Stomach, Via Natural or Artificial Opening Endoscopic, Diagnostic (ICD-10-PCS; principal; 2017-02-11 11:33)
DX: K29.70 Gastritis, unspecified, without bleeding (principal); K92.0 Hematemesis; D64.9 Anemia, unspecified; E87.6 Hypokalemia; R19.7 Diarrhea, unspecified; K22.8 Other specified diseases of esophagus
CPT/HCPCS: 36415; 76700; 80048; 80053; 80061; 80300; 81003; 81025; 82150; 83036; 83540; 83550; 83690; 85007; 85025; 85610; 85730; 94003; 94150; J2405; J8499